=== PATIENT | male | born 1985 | race Caucasian/White ===

== ENCOUNTER → 2019-04-28 10:23 | Outpatient (CLI) | payer OTHER, SELFPAY ==
[2019-04-28 12:29] LABS: Liquefaction Semen YES (YES); PH Semen 8.5 (7-8); Sperm Count 4 x10^6/mL (20-150); Sperm Morphology 83 %ABNORM (0-30); Sperm Motility 10% % Motile
== END ==
DX: Z31.41 Encounter for fertility testing (principal)
CPT/HCPCS: 89320

== ENCOUNTER → 2020-09-05 09:49 | Outpatient (CLI) | payer OTHER, SELFPAY ==
[2020-09-05] MEDS: COVID-19 VACC, Ad26(JANSSEN)/PF 0.5 ML IM (09:57)
== END ==
PROVIDERS: Visit Provider Internal Medicine
DX: Z23 Encounter for immunization (principal)
CPT/HCPCS: 0031A; 91303